=== PATIENT | female | born 1955 | race Caucasian/White ===

== ENCOUNTER → 2017-01-14 | Outpatient (CLI) | payer OTHER ==
[~2017-01-14] MED LIST: ASPI81TA28 PO; CITA40TA12 PO; GABA1CAP4 PO; GLC500 PO; INSDGI SQ; INSUINJ14 SQ; LSN5 PO; ONDA4TAB7 SL; PROP20TA67 PO
--- NOTE | 2017-01-14 10:37 | DIAGNOSTIC IMAGING REPORT ---
CT LUNG SCREENING, LOW DOSE WITH COMPUTER-AIDED DETECTION (CAD) CLINICAL HISTORY: LOW DOSE LUNG SCREENING COMPARISON STUDY: No previous studies for comparison. CT DOSE: 79.39 mGycm TECHNIQUE: Low-dose helical CT was acquired without intravenous contrast from lung apices to bases and reconstructed at 2.5 mm every 2 mm. CAD was utilized for this study. FINDINGS: Lungs are considered clear. 3 mm nodular density peripheral aspect right lower lobe transaxial image 83 3 mm nodular density peripheral left midlung image 34. Pleural-based density 5 mm superior segment left lower lobe. No acute infiltrate. No significant hilar or mediastinal adenopathy. Nodule 1 Category: 3 Nodule 1 Status: Baseline Nodule 1 Description: Solid Nodule 1 Lesion ID: 6 Nodule 1 Slice Number: 88 Nodule 1 Volume (mm3): 121 Nodule 1 Major [place] mm: 8.7 Nodule 1 Minor [place] mm: 5.7 Nodule 2 Category: 2 Nodule 2 Status: Baseline Nodule 2 Description: Solid Nodule 2 Lesion ID: 1 Nodule 2 Slice Number: 67 Nodule 2 Volume (mm3): 81 Nodule 2 Major [place] mm: 7.1 Nodule 2 Minor [place] mm: 4.8 Nodule 3 Category: 2 Nodule 3 Status: Baseline Nodule 3 Description: Solid Nodule 3 Lesion ID: 5 Nodule 3 Slice Number: 82 Nodule 3 Volume (mm3): 53 Nodule 3 Major [place] mm: 4.3 Nodule 3 Minor [place] mm: 2.6 Nodule 4 Category: 3 Nodule 4 Status: Baseline Nodule 4 Description: Solid Nodule 4 Lesion ID: 6 Nodule 4 Slice Number: 88 Nodule 4 Volume (mm3): 121 Nodule 4 Major [place] mm: 8.7 Nodule 4 Minor [place] mm: 5.7 IMPRESSION: Several low suspicion nodules bilaterally. CAD FINDINGS: Overall Lung RADS Category: 3 Lung RADS Management Recommendation: Lung-RADS 3: Continue screening in 6 months. Lung RADS Follow Up Date: 2017-07-14 Lung RADS Nodule ID: 6 Electronically signed by: Mele Valdez M.D. 01/14/2017 10:35 AM Dictated Date/Time: 01/14/2017 10:24 AM
== END | disposition home or self-care (01) ==
LOC: C.CTS 10:04
PROVIDERS: ATTEND Internal Medicine
DX: F17.200 Nicotine dependence, unspecified, uncomplicated (principal); R91.8 Other nonspecific abnormal finding of lung field

== ENCOUNTER → 2017-01-15 | Outpatient (CLI) | payer OTHER ==
[2017-01-15 12:23] LABS: BASO % 0.6 %; BASO ABS # 0.03 K/uL (0-0.2); COMPLETE YES; EOS % 9.9 %; HEMATOCRIT 39.7 % (37-47); IG% 0.4 %; LYMPH ABS # 1.16 K/uL (1.2-3.4); MEAN CELL VOLUME 87.4 fL (80-100); MEAN CORPUSCULAR HGB CONC 34.3 g/dl (32-36); MEAN PLATELET VOLUME 10.6 fL (7.4-10.4); MONO % 9.3 %; NEUT % 57.8 %; PLATELET COUNT 215 K/uL (130-400); RED BLOOD COUNT 4.54 M/uL (4.2-5.4); WHITE BLOOD COUNT 5.27 K/uL (4.8-10.8)
[2017-01-15 12:35] LABS: ALT/SGPT 22 U/L (12-78); BLOOD UREA NITROGEN 22 mg/dl (7-18); BUN/CREATININE RATIO 27.4 (10-20); CALCIUM 9.4 mg/dl (8.5-10.1); CARBON DIOXIDE 28 mmol/L (21-32); CHLORIDE 101 mmol/L (98-107); CHOLESTEROL 172 mg/dl (0-200); GLUCOSE 159 mg/dl (70-99); POTASSIUM 4.5 mmol/L (3.5-5.1); SODIUM 136 mmol/L (136-145); TRIGLYCERIDES 117 mg/dl (0-150); VERY LOW DENSITY LIPOPROT CALC 23 mg/dl
[2017-01-15 12:38] LABS: ALB/GLOB RATIO 1.3 (0.9-2); ALKALINE PHOSPHATASE 67 U/L (45-117); AST/SGOT 15 U/L (15-37); CHOLESTEROL/HDL RATIO 3.2; HDL CHOLESTEROL 54 mg/dl; LDL CHOLESTEROL CALCULATED 95 mg/dl
== END | disposition home or self-care (01) ==
LOC: C.LABBFT 08:43
PROVIDERS: ATTEND Internal Medicine
DX: E11.9 Type 2 diabetes mellitus without complications (principal); E78.5 Hyperlipidemia, unspecified

== ENCOUNTER → 2017-02-02 | Outpatient (CLI) | payer OTHER ==
--- NOTE | 2017-02-02 14:16 | DIAGNOSTIC IMAGING REPORT ---
MRI OF THE CERVICAL SPINE WITHOUT IV CONTRAST CLINICAL HISTORY: Neck pain. Left shoulder numbness. COMPARISON STUDY: No priors. TECHNIQUE: MRI of the cervical spine is performed utilizing various T1 and T2-weighted sequences in the axial and sagittal planes. IV contrast was not administered for this examination. FINDINGS: Cervical spine: Vertebral body height and alignment are maintained throughout the cervical spine. The atlantodental articulation appears maintained. Marrow signal intensity is heterogeneous. The spinous processes appear intact. No destructive bony lesion is seen. A hemangioma is noted in the body of T3. Advanced degenerative endplate edema is present at C7 to T1. Mild endplate edema is seen at C2-C3 and C3-C4. Anterior osteophytes are seen throughout. Intervertebral discs: Degenerative disc desiccation and loss of height is seen throughout the cervical spine. Loss of height is severe from C3-C4 through C6-C7. Spinal cord: The cervical spinal cord is normal in morphology and signal intensity. C2-C3: Unremarkable. C3-C4: A posterior disc osteophyte complex abuts the ventral cord. Uncovertebral and facet arthropathy causes moderate left and mild right neural foraminal stenosis. C4-C5: A posterior disc osteophyte complex eccentric to the left effaces the ventral cord. Uncovertebral and facet arthropathy causes severe left and moderate right neural foraminal stenosis. C5-C6: A posterior disc osteophyte complex effaces the ventral cord. Uncovertebral and facet arthropathy causes moderate bilateral neural foraminal stenosis. C6-C7: A posterior disc osteophyte complex effaces the ventral subarachnoid space. Uncovertebral and facet arthropathy cause moderate right and mild to moderate left neural foraminal stenosis. C7-T1: A posterior disc osteophyte complex abuts the ventral cord. Uncovertebral and facet arthropathy causes moderate to severe right greater than left neural foraminal stenosis. Soft tissues: The prevertebral and paraspinous soft tissues are normal as imaged. Brain parenchyma: Partially imaged brain parenchyma at the skull base is within normal limits. IMPRESSION: 1. Degenerative disc disease as above. There is severe endplate edema at C7-T1. 2. Moderate to advanced multilevel cervical spondylosis. See discussion for detailed level by level analysis. 3. The cervical spinal cord is normal in morphology and signal intensity. Dictated: 02/02/2017 2:05 PM Transcribed: 02/02/2017 2:15 PM [facility] Electronically signed by: Eugene Richardson M.D. 02/02/2017 2:27 PM Dictated Date/Time: 02/02/2017 2:05 PM
== END | disposition home or self-care (01) ==
LOC: C.MRI 13:12
PROVIDERS: ATTEND Psychiatry & Neurology Neurology
DX: M50.20 Other cervical disc displacement, unspecified cervical region (principal); M50.30 Other cervical disc degeneration, unspecified cervical region; M47.812 Spondylosis without myelopathy or radiculopathy, cervical region; R20.0 Anesthesia of skin

== ENCOUNTER → 2017-02-19 | Outpatient (CLI) | payer OTHER ==
[2017-02-19 12:32] LABS: ESTIMATED AVERAGE GLUCOSE 169 mg/dl; HA1C FLAG Normal (Normal)
== END | disposition home or self-care (01) ==
LOC: C.LABBFT 10:14
PROVIDERS: ATTEND Nurse Practitioner Family
DX: E11.65 Type 2 diabetes mellitus with hyperglycemia (principal)

== ENCOUNTER → 2017-07-08 | Outpatient (CLI) | payer OTHER ==
[2017-07-08 12:24] LABS: ALT/SGPT 19 U/L (12-78); BLOOD UREA NITROGEN 19 mg/dl (7-18); BUN/CREATININE RATIO 24.7 (10-20); CALCIUM 9.4 mg/dl (8.5-10.1); CARBON DIOXIDE 27 mmol/L (21-32); CHLORIDE 107 mmol/L (98-107); CHOLESTEROL 229 mg/dl (0-200); CREATININE 0.78 mg/dl (0.60-1.20); GLUCOSE 134 mg/dl (70-99); POTASSIUM 4.3 mmol/L (3.5-5.1); SODIUM 138 mmol/L (136-145)
[2017-07-08 12:35] LABS: ALKALINE PHOSPHATASE 68 U/L (45-117); AST/SGOT 12 U/L (15-37); CHOLESTEROL/HDL RATIO 4.3; HDL CHOLESTEROL 53 mg/dl; LDL CHOLESTEROL CALCULATED 148 mg/dl; TRIGLYCERIDES 141 mg/dl (0-150); VERY LOW DENSITY LIPOPROT CALC 28 mg/dl
[2017-07-08 13:16] LABS: ESTIMATED AVERAGE GLUCOSE 146 mg/dl; HA1C FLAG Normal (Normal)
== END | disposition home or self-care (01) ==
LOC: C.LABBFT 07:52
PROVIDERS: ATTEND Internal Medicine
DX: E11.65 Type 2 diabetes mellitus with hyperglycemia (principal); E78.5 Hyperlipidemia, unspecified

== ENCOUNTER → 2017-07-24 | Outpatient (CLI) | payer OTHER ==
--- NOTE | 2017-07-24 10:47 | DIAGNOSTIC IMAGING REPORT ---
SOFT TISS HEAD/NECK-THYROID CLINICAL HISTORY: 61 years-old Female presenting with abnormal thyroid exam. TECHNIQUE: Real-time grayscale and color and spectral Doppler ultrasound imaging of the thyroid and base of the neck was performed. COMPARISON: None. FINDINGS: Right lobe: Normal echogenicity and echotexture. The right lobe of the thyroid measures 5.4 x 1.6 x 2.5 cm. No nodules. No parenchymal hyperemia. Left lobe: Normal echogenicity and echotexture. The left lobe of the thyroid measures 5.6 x 1.7 x 2.2 cm. 2 nodules index below: 1) posterior peripheral hypoechoic nodule in the upper pole measuring 0.6 x 0.4 x 0.5 cm. (Intermediate suspicion pattern) 2) posterior peripheral hypoechoic nodule in the interpolar region measuring 0.7 0.5 x 0.6 cm. Tiny foci of hyperechogenicity may represent microcalcifications. (High suspicion pattern) No parenchymal hyperemia. Isthmus: The isthmus measures 3-5 mm in thickness. No nodules. IMPRESSION: 2 hypoechoic nodules noted along the posterior peripheral aspect of the left lobe of the thyroid. If these were to represent thyroid nodules, neither of them by size criteria warrant fine-needle aspiration at this time per [place] [employer] guidelines. However, differential considerations for these nodules include parathyroid glands. Correlate with serum calcium and possible parathyroid hormone levels. Electronically signed by: Jayjay Reynolds M.D. 07/24/2017 10:46 AM Dictated Date/Time: 07/24/2017 10:42 AM
--- NOTE | 2017-07-24 10:51 | DIAGNOSTIC IMAGING REPORT ---
CT OF THE CHEST WITHOUT IV CONTRAST CLINICAL HISTORY: Multiple pulmonary nodules. Six-month follow-up CT. COMPARISON STUDY: Screening lung CT January 14, 2017. CT DOSE: 626.34 mGycm TECHNIQUE: Axial images of the chest were obtained without IV contrast. Images were reviewed in the axial, sagittal, and coronal planes. IV contrast was not administered for this examination. A dose lowering technique was utilized adhering to the principles of ALARA. FINDINGS: No enlarged axillary, mediastinal or hilar lymph nodes are present. The size of the heart is normal. There is no pericardial effusion. Central airways are patent. Numerous small pleural nodules are either stable or decreased in size since exam of January 14, 2017 and include a 3 mm left lower lobe nodule shown image 34 of 66, a 5 mm left lower lobe nodule shown image 3466, a 3 mm lingular nodule shown image 38 and a 5 mm left lower lobe nodule shown image 32. Numerous additional smaller nodules are unchanged. A linear groundglass opacity within left upper lobe reflects scarring. There is no consolidation to suggest pneumonia. Central airways are patent. Bony thorax is unremarkable. There is slight prominence of the left renal pelvis which could reflect an extrarenal pelvis. IMPRESSION: No significant change in multiple small pulmonary nodules since exam of January 14, 2017. These nodules are likely benign. Lung-RADS 2. Benign appearance or behavior. Continue with annual screening low dose CT in 12 months on July 24, 2018. Nodule 1 Category: 2 Nodule 1 Status: Shrinking Nodule 1 Description: Solid Nodule 1 Lesion ID: 6 Nodule 1 Slice Number: 170 Nodule 1 Volume (mm3): 72 Nodule 1 Major [place] mm: 6.6 Nodule 1 Minor [place] mm: 4.6 Nodule 2 Category: 2 Nodule 2 Status: Stable Nodule 2 Description: Solid Nodule 2 Lesion ID: 7 Nodule 2 Slice Number: 161 Nodule 2 Volume (mm3): 50 Nodule 2 Major [place] mm: 5.6 Nodule 2 Minor [place] mm: 2.4 Nodule 3 Category: 2 Nodule 3 Status: Shrinking Nodule 3 Description: Solid Nodule 3 Lesion ID: 5 Nodule 3 Slice Number: 163 Nodule 3 Volume (mm3): 21 Nodule 3 Major [place] mm: 3.8 Nodule 3 Minor [place] mm: 3.6 Nodule 4 Category: 2 Nodule 4 Status: Shrinking Nodule 4 Description: Solid Nodule 4 Lesion ID: 6 Nodule 4 Slice Number: 170 Nodule 4 Volume (mm3): 72 Nodule 4 Major [place] mm: 6.6 Nodule 4 Minor [place] mm: 4.6 Electronically signed by: Sid Samayoa M.D. 07/24/2017 10:50 AM Dictated Date/Time: 07/24/2017 10:29 AM
== END | disposition home or self-care (01) ==
LOC: C.CTS 09:55
PROVIDERS: ATTEND Internal Medicine
DX: R94.6 Abnormal results of thyroid function studies (principal)

== ENCOUNTER → 2017-08-06 | Outpatient (CLI) | payer OTHER | END | disposition home or self-care (01) | LOC: C.LABBFT 13:43 | PROVIDERS: ATTEND Internal Medicine | DX: R94.6 Abnormal results of thyroid function studies (principal) ==

== ENCOUNTER → 2017-09-07 | Outpatient (CLI) | payer OTHER ==
--- NOTE | 2017-09-08 07:36 | MAMMOGRAPHY REPORT ---
BILATERAL DIGITAL SCREENING MAMMOGRAM TOMOSYNTHESIS WITH CAD: 09/07/2017 CLINICAL HISTORY: Routine screening. Patient has no complaints. TECHNIQUE: Breast tomosynthesis in addition to standard 2D mammography was performed. Current study was also evaluated with a Computer Aided Detection (CAD) system. COMPARISON: Comparison is made to exams dated: 09/05/2016 mammogram, 09/03/2015 mammogram, 08/31/2014 mammogram, 06/02/2013 mammogram, 01/22/2012 mammogram, and 05/29/2010 mammogram - [facility] enter. BREAST COMPOSITION: The tissue of both breasts is almost entirely fatty. FINDINGS: There is stable nodularity in the lateral aspect of each breast. A few benign round and r im calcifications. No suspicious mass, architectural distortion or cluster of microcalcifications is seen. IMPRESSION: ACR BI-RADS CATEGORY 2: BENIGN There is no mammographic evidence of malignancy. A 1 year screening mammogram is recommended. The pa tient will receive written notification of the results. Approximately 10% of breast cancers are not detected with mammography. A negative mammographic report should not delay biopsy if a clinically suggestive mass is present. Ora Singleton M.D. ay/:09/07/2017 16:31:36 [employer]: Gayatri Hussein, [facility] letter sent: Normal 1/2 BI-RADS Code: ACR BI-RADS Category 2: Benign
== END | disposition home or self-care (01) ==
LOC: C.MAMM 11:33
PROVIDERS: ATTEND Internal Medicine
DX: Z12.31 Encounter for screening mammogram for malignant neoplasm of breast (principal)

== ENCOUNTER → 2018-01-28 | Outpatient (CLI) | payer OTHER ==
[~2018-01-28] MED LIST changes: +GABA-1219 PO; -GABA1CAP4 PO
--- NOTE | 2018-01-28 10:42 | DIAGNOSTIC IMAGING REPORT ---
SOFT TISS HEAD/NECK-THYROID HISTORY: Thyroid nodule E04.1 Thyroid nodule6 month follow-[id number] COMPARISON: 07/24/2017 FINDINGS: Right lobe: Maximum dimension 4.6 cm. Several small hypoechoic nodular densities with the largest measuring 4 mm. Left lobe: Maximum dimension 5.3 cm. 8 mm upper pole nodule slightly increased in volume. Complex 9 mm lower pole nodule is minimally increased. Isthmus: 6 mm hypoechoic nodule right aspect. 4 mm hypoechoic nodule left lateral aspect. IMPRESSION: Multicystic multinodular thyroid slightly increased in nodularity compared to the prior exam. All nodules remain smaller than 1 cm with a repeat study recommended in 6-9 months. The above report was generated using voice recognition software. It may contain grammatical, syntax or spelling errors. Electronically signed by: Mele Valdez M.D. 01/28/2018 10:41 AM Dictated Date/Time: 01/28/2018 10:38 AM
== END | disposition home or self-care (01) ==
LOC: C.ULTR 09:53
PROVIDERS: ATTEND Internal Medicine
DX: E04.2 Nontoxic multinodular goiter (principal)

== ENCOUNTER → 2018-02-25 | Outpatient (CLI) | payer OTHER ==
--- NOTE | 2018-02-25 12:03 | DIAGNOSTIC IMAGING REPORT ---
CT LUNG SCREENING, LOW DOSE WITH COMPUTER-AIDED DETECTION (CAD) CLINICAL HISTORY: History of tobacco use. COMPARISON STUDY: Lung cancer screening 01/14/2017. CT DOSE: 75.68 mGy.cm TECHNIQUE: Low-dose helical CT was acquired without intravenous contrast from lung apices to bases and reconstructed at 2.5 mm every 2 mm. CAD was utilized for this study. A dose lowering technique was utilized adhering to the principles of ALARA. FINDINGS: Mild emphysema. No pleural effusions. No pneumothorax. Small linear scarlike density within the liver from the left midlung zone. There again noted a few scattered subcentimeter bilateral pulmonary nodules. No new pulmonary nodules identified. Dominant nodules are detailed below. No suspicious lytic or blastic osseous lesions. No mediastinal or hilar lymphadenopathy. Nodule 1 Category: 2 Nodule 1 Status: Growing Nodule 1 Description: Solid Nodule 1 Lesion ID: 6 Nodule 1 Slice Number: 67 Nodule 1 Volume (mm3): 103 Nodule 1 Major [place] mm: 7.6 Nodule 1 Minor [place] mm: 4.3 Nodule 2 Category: 2 Nodule 2 Status: Growing Nodule 2 Description: Solid Nodule 2 Lesion ID: 5 Nodule 2 Slice Number: 59 Nodule 2 Volume (mm3): 54 Nodule 2 Major [place] mm: 4.7 Nodule 2 Minor [place] mm: 3.7 IMPRESSION: Multiple subcentimeter pulmonary nodules are again noted with details described above. No new pulmonary nodules. CAD FINDINGS: Overall Lung RADS Category: 2 Lung RADS Management Recommendation: Continue annual lung cancer screening. Lung RADS Follow Up Date: 2019-02-25 Lung RADS Nodule ID: 6 Electronically signed by: Juaquin Burgess M.D. 02/25/2018 12:02 PM Dictated Date/Time: 02/25/2018 11:31 AM
== END | disposition home or self-care (01) ==
LOC: C.CTS 10:45
PROVIDERS: ATTEND Internal Medicine
DX: Z87.891 Personal history of nicotine dependence (principal); R91.8 Other nonspecific abnormal finding of lung field

== ENCOUNTER → 2018-03-09 | Outpatient (CLI) | payer OTHER | END | disposition home or self-care (01) | LOC: C.PAPS 17:19 | PROVIDERS: ATTEND Nurse Practitioner | DX: Z12.4 Encounter for screening for malignant neoplasm of cervix (principal); E11.9 Type 2 diabetes mellitus without complications ==

== ENCOUNTER → 2018-06-28 | Outpatient (CLI) | payer OTHER ==
[~2018-06-28] MED LIST changes: +LISI-730 PO; -LSN5 PO
[2018-06-28 12:45] LABS: HEMOGLOBIN A1C 7.6 % (4.5-5.6)
[2018-06-28 13:02] LABS: ALBUMIN 3.7 gm/dl (3.4-5.0); ALKALINE PHOSPHATASE 69 U/L (45-117); ALT/SGPT 17 U/L (12-78); AST/SGOT 10 U/L (15-37); BLOOD UREA NITROGEN 20 mg/dl (7-18); CALCIUM 8.8 mg/dl (8.5-10.1); CARBON DIOXIDE 26 mmol/L (21-32); CHOLESTEROL 210 mg/dl (0-200); GLUCOSE 117 mg/dl (70-99); LDL CHOLESTEROL CALCULATED 132 mg/dl; POTASSIUM 3.9 mmol/L (3.5-5.1); SODIUM 139 mmol/L (136-145); TOTAL PROTEIN 6.8 gm/dl (6.4-8.2)
== END | disposition home or self-care (01) ==
LOC: C.LABBFT 09:12
PROVIDERS: ATTEND Nurse Practitioner
DX: E11.65 Type 2 diabetes mellitus with hyperglycemia (principal)

== ENCOUNTER 2020-01-22 11:18 | Observation (INO) ==
[2020-01-22] MEDS ORDERED: ALBUT/IPRATROP 3MG/0.5MG NEB 3 ML VIAL INH STA (11:57)
[2020-01-22 12:07] LABS: Basophils # (auto) 0.02 K/uL (0-0.2); Basophils % (auto) 0.4 %; Eosinophils # (auto) 0.35 K/uL (0-0.5); Eosinophils % (auto) 7.8 %; Hematocrit (blood only) 41.4 % (37-47); Hemoglobin 13.8 g/dL (12.0-16.0); Immature Granulocytes # (auto) 0.01 K/uL (0.00-0.02); Immature Granulocytes % (auto) 0.2 %; Lymphocytes # (auto) 0.73 K/uL (1.2-3.4); Lymphocytes % (auto) 16.3 %; Mean Corpuscular Hgb Conc 33.3 g/dL (32-36); Mean Platelet Volume 10.7 fL (7.4-10.4); Monocytes % (auto) 11.2 %; Neutrophils # (auto) 2.87 K/uL (1.4-6.5); Neutrophils % (auto) 64.1 %; Platelet Count 204 K/uL (130-400); RDW Coefficient of Variation 12.2 % (11.5-14.5); RDW Standard Deviation 39.9 fL (36.4-46.3); White Blood Count 4.48 K/uL (4.8-10.8)
[2020-01-22 12:14] LABS: Alanine Aminotransferase 19 U/L (12-78); Albumin Level 3.8 gm/dl (3.4-5.0); Aspartate Aminotransferase 14 U/L (15-37); BUN Creatinine Ratio 10.9 (10-20); Blood Urea Nitrogen 9 mg/dl (7-18); Calcium 9.8 mg/dl (8.5-10.1); Carbon Dioxide 28 mmol/L (21-32); Chloride 103 mmol/L (98-107); Creatinine Clr Calc Pharmacy 94.9 ml/min; Est GFR (African American) 91.6; Glucose 237 mg/dl (70-99); Potassium 3.9 mmol/L (3.5-5.1); Sodium 137 mmol/L (136-145)
[2020-01-22 12:16] LABS: Partial Thromboplastin Time 27.3 Seconds (21.0-31.0); Prothrombin Time 10.5 Seconds (9.0-12.0)
[2020-01-22 12:19] LABS: Alkaline Phosphatase 89 U/L (45-117); Bilirubin,Total 0.4 mg/dl (0.2-1); Total Protein 7.8 gm/dl (6.4-8.2); Troponin I < 0.015 ng/ml (0-0.045)
--- NOTE | 2020-01-22 12:29 | Emergency Department Note ---
Entered by Swati Van acting as a scribe for History of Present Illness General Chief complaint: Shortness of Breath/Dyspnea Stated complaint: sob/flu symptoms Time Seen by Provider: 01/22/20 11:48 Source: patient History of Present Illness Onset (ago): day(s) 2 Location: chest Pain Consistency: + other (persistent ) Quality: + other (shortness of breath) Associated symptoms: + chest pain (tightness), + cough (slightly productive ), + fever/chills, + nausea/vomiting (positive nausea; negative vomiting ) and + other (positive runny nose) The patient is a 64 year old female who presents to the Emergency Room with complaints of persistent shortness of breath that began 2 days prior to arrival. The patient reports that she has tightness in her chest with breathing. The patient states that she has had a slightly productive cough during this time. The patient reports a low grade fever yesterday. She states that she has had a runny nose during this time. The patient states that she has been feeling nauseous, but denies vomiting. The patient states that 2 weeks ago she had sinus symptoms and was seen by a nurse practitioner for sinus symptoms and dizziness and was given medication for this dizziness. The patient states that she got a flu shot this year. She states that she is a smoker. Home Medications Home Medications Medication Instructions Recorded Confirmed Type citalopram 40 mg tablet 40 mg PO QAM #30 tab 07/04/19 01/22/20 History metformin 1,000 mg tablet 1,000 mg PO BID #180 tab 07/04/19 01/22/20 History [id number]-[id number] 1 tab PO HS 07/04/19 01/22/20 History triamcinolone acetonide 0.5 % 1 appln TOPICAL DAILY PRN #3 gm 07/04/19 01/22/20 History topical cream insulin aspart U-100 100 unit/mL 0 units SQ TIDM ml 08/08/19 01/22/20 History (3 mL) subcutaneous pen propranolol 20 mg tablet 20 mg PO BID 08/10/19 01/22/20 History BD Ultra-Fine Amanda Pen Needle 32 #400 ea NS 12/08/19 01/05/20 Rx gauge x 5/32" OneTouch Ultra Blue Test Strip #400 ea NS 12/08/19 01/05/20 Rx fluticasone propionate 50 2 sprays INTRANASAL HS #3 gm 12/08/19 01/22/20 History mcg/actuation nasal spray,suspension nystatin 100,000 unit/gram topical 1 appln TOPICAL TID PRN #3 gm 12/08/19 01/22/20 History powder blood-glucose meter #1 ea 01/05/20 01/05/20 History gabapentin 300 mg capsule 300 mg PO HS #90 cap 01/12/20 01/22/20 Rx Toujeo Max U-300 SoloStar 22 units SQ HS 01/22/20 01/22/20 History aspirin 81 mg PO QAM 01/22/20 01/22/20 History ibuprofen 200 mg PO Q6H PRN 01/22/20 01/22/20 History pseudoephedrine HCl [Sudafed] 30 mg PO Q6H PRN 01/22/20 01/22/20 History doxycycline hyclate 100 mg PO BID #8 tab 01/23/20 Rx ipratropium-albuterol [Combivent 2 puffs INH Q6H PRN #4 gm 01/23/20 Rx Respimat] nicotine 14 mg TRANSDERMAL QAM #14 ea 01/23/20 Rx prednisone 40 mg PO DAILY #8 tab 01/23/20 Rx Allergies Allergy/AdvReac Type Severity Reaction Status Date / Time atorvastatin Allergy MYALGIA Verified 01/22/20 12:01 rosuvastatin [From Crestor] Allergy Verified 01/22/20 12:01 simvastatin Allergy Verified 01/22/20 12:01 primidone AdvReac DEPRESSION; Verified 01/22/20 12:01 SUICIDAL THOUGHTS PRIMADONE Allergy Unknown DEPRESSION, Uncoded 01/22/20 12:01 SUICIDAL IDEATION Past Med/Surg History Medical History Bipolar disorder, unspecified (Acute) Depression (Acute) Diabetes mellitus type 2, uncontrolled, without complications (Acute) Herniated cervical disc (Acute) Hyperlipidemia (Acute) Hypertension (Acute) Insomnia (Acute) Lichen sclerosus et atrophicus (Acute) Multiple pulmonary nodules (Acute) Numbness (Acute) Obesity (Acute) Shoulder pain (Acute) Smokes 1/2 pack per day (Acute) Thyroid nodule (Acute) Tremor (Acute) Tricuspid regurgitation (Acute) Vasovagal syncope (Acute) Surgical History H/O oophorectomy (Acute) Family History Mother Breast cancer Denies family history of Ovarian cancer Prostate cancer Myocardial infarction Colorectal cancer Social History Preferred Language: Sudanese Communication Ability: Effective 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 and A total of 10 systems reviewed and were otherwise negative Physical Exam Vital Signs Vital Signs - 24 hr 01/22/20 11:35 01/22/20 11:37 01/22/20 12:00 Temperature 36.9 C Temperature Source Oral Pulse Rate 91 H 88 96 H Pulse Rate [Right Finger] Pulse Rate from SpO2 Sensor 95 H 95 H Respiratory Rate 22 26 H 17 Respiratory Effort / Characteristics Blood Pressure 159/86 H 157/113 H 163/102 H Blood Pressure Mean 102 127 121 Pulse Oximetry 98 90 97 Oxygen Delivery Method Nasal Cannula Nasal Cannula Nasal Cannula Oxygen Flow Rate 2 0 2 Sepsis Recent Fever Within 48 Hours No Sepsis New/Unexplained Change in Mental Status No Sepsis Action Taken by Nursing No Action Required Oxygen Flow Rate - Titration 2 Pulse Oximetry Post Tiitration 97 01/22/20 12:09 01/22/20 12:11 01/22/20 12:30 Temperature Temperature Source Pulse Rate 85 Pulse Rate [Right Finger] 71 Pulse Rate from SpO2 Sensor 83 Respiratory Rate 16 16 Respiratory Effort / Characteristics Non-Labored Spontaneous Blood Pressure 152/97 H Blood Pressure Mean 114 Pulse Oximetry 98 97 98 Oxygen Delivery Method Nasal Cannula Nasal Cannula Nasal Cannula Oxygen Flow Rate 2 2 2 Sepsis Recent Fever Within 48 Hours Sepsis New/Unexplained Change in Mental Status Sepsis Action Taken by Nursing Oxygen Flow Rate - Titration Pulse Oximetry Post Tiitration 01/22/20 13:00 01/22/20 13:30 01/22/20 14:00 Temperature Temperature Source Pulse Rate 86 78 68 Pulse Rate [Right Finger] Pulse Rate from SpO2 Sensor 87 79 68 Respiratory Rate 23 13 19 Respiratory Effort / Characteristics Blood Pressure 165/85 H 164/87 H 143/87 H Blood Pressure Mean 95 103 105 Pulse Oximetry 94 92 95 Oxygen Delivery Method Nasal Cannula Nasal Cannula Oxygen Flow Rate 2 2 Sepsis Recent Fever Within 48 Hours Sepsis New/Unexplained Change in Mental Status Sepsis Action Taken by Nursing Oxygen Flow Rate - Titration Pulse Oximetry Post Tiitration 01/22/20 14:17 01/22/20 14:30 01/22/20 15:30 Temperature Temperature Source Pulse Rate 87 88 Pulse Rate [Right Finger] 71 Pulse Rate from SpO2 Sensor 89 Respiratory Rate 16 17 18 Respiratory Effort / Characteristics Non-Labored Spontaneous Blood Pressure 147/93 H Blood Pressure Mean 130 Pulse Oximetry 98 94 Oxygen Delivery Method Nasal Cannula Oxygen Flow Rate 2 Sepsis Recent Fever Within 48 Hours Sepsis New/Unexplained Change in Mental Status Sepsis Action Taken by Nursing Oxygen Flow Rate - Titration Pulse Oximetry Post Tiitration GENERAL: Patient is awake alert in no acute distress patient is resting comfortably and showing no signs of anxiety EYES: The conjunctivae are clear. The pupils are round and reactive. EARS, NOSE, MOUTH AND THROAT: The nose is without any evidence of any deformity. Mucous membranes are moist. Tongue is midline. NECK: The neck is nontender and supple. RESPIRATORY: Shallow respirations were noted. Expiratory wheezing was noted in all lung hough. There is no significant conversational dyspnea appreciated. CARDIOVASCULAR: Regular rate and rhythm noted there no murmurs rubs or gallops normal S1 normal S2. GASTROINTESTINAL: The abdomen is soft. Abdomen is nontender. MUSCULOSKELETAL/EXTREMITIES: There is no evidence of gross deformity full range of motion is noted in the hips and shoulders. SKIN: There is no obvious evidence of any rash. There is no calf tenderness elicited. NEUROLOGIC: Patient is awake alert and oriented x3 strength is symmetric patellar reflexes are 2+ bilaterally Course Course 1156: Past medical records reviewed. The patient was evaluated in room A12B. A complete history and physical exam was performed. 1358: Upon reevaluation, the patient appears to be hypoxic. 1406: I discussed the case with Dr. Rosario-[facility] Hospitalist who accepts the patient for further evaluation. She recommended a CT of the patient's chest. Administered Medications Discontinued Medications Acetaminophen (Tylenol) 650 mg PO Q4H PRN PRN Reason: Pain or Fever Stop: 02/21/20 16:46 Last Admin: 01/23/20 08:22 Dose: 650 mg Documented by: [id number] Albuterol (Duoneb) 3 ml INH NOW STA Stop: 01/22/20 11:58 Last Admin: 01/22/20 12:11 Dose: 3 ml Documented by: [id number] Albuterol (Duoneb) 3 ml NEB NOW STA Stop: 01/22/20 13:55 Last Admin: 01/22/20 14:16 Dose: 3 ml Documented by: [id number] Albuterol (Duoneb) 3 ml NEB QIDR [facility] Stop: 02/21/20 18:59 Last Admin: 01/23/20 11:24 Dose: 3 ml Documented by: [id number] Admin: 01/23/20 07:14 Dose: 3 ml Documented by: [id number] Admin: 01/22/20 18:13 Dose: 3 ml Documented by: [id number] Aspirin (Ecotrin Ectab) 81 mg PO [facility] Stop: 02/22/20 08:59 Last Admin: 01/23/20 08:08 Dose: 81 mg Documented by: [id number] Citalopram Hydrobromide (Celexa) 40 mg PO [facility] Stop: 02/22/20 08:59 Last Admin: 01/23/20 08:08 Dose: 40 mg Documented by: [id number] Enoxaparin Sodium (Lovenox) [address] [facility] Stop: 02/21/20 20:59 Last Admin: 01/22/20 21:56 Dose: Not Given Documented by: [id number] Fluticasone Propionate (Flonase) [address] [facility] Stop: 02/21/20 20:59 Last Admin: 01/22/20 21:08 Dose: 2 sprays Documented by: [id number] Fluticasone/Vilanterol (Breo Ellipta 100/25 Mcg Inh) [address] [facility] Stop: 02/21/20 20:59 Last Admin: 01/22/20 21:08 Dose: 1 puffs Documented by: [id number] Gabapentin (Neurontin) [address] [facility] Stop: 02/21/20 20:59 Last Admin: 01/22/20 21:08 Dose: 300 mg Documented by: [id number] Doxycycline Hyclate 100 mg/ (Dextrose) 110 mls @ 50 mls/hr IV BID [facility]; Protocol Stop: 01/29/20 20:59 Last Infusion: 01/23/20 11:10 Dose: 0 mls/hr Documented by: [id number] Admin: 01/23/20 08:17 Dose: 50 mls/hr Documented by: [id number] Infusion: 01/23/20 00:30 Dose: 0 mls/hr Documented by: [id number] Admin: 01/22/20 21:28 Dose: 50 mls/hr Documented by: [id number] Ceftriaxone Sodium 2,000 mg/ (Dextrose) 70 mls @ 100 mls/hr IV Q24H [facility]; Protocol Stop: 01/29/20 17:59 Last Infusion: 01/22/20 18:49 Dose: 0 mls/hr Documented by: [id number] Admin: 01/22/20 17:38 Dose: 100 mls/hr Documented by: [id number] Methylprednisolone 40 mg/ (Syringe) 0.64 mls @ 1.5 mls/min IV BID [facility] Stop: 02/21/20 20:59 Last Admin: 01/23/20 08:07 Dose: 1.5 mls/min Documented by: [id number] Admin: 01/22/20 21:08 Dose: 1.5 mls/min Documented by: [id number] Insulin Aspart (Novolog Flexpen) 0 units SC ACHS [facility] Stop: 02/21/20 17:29 Last Admin: 01/23/20 12:21 Dose: 18 units Documented by: [id number] Cosigned by: [id number] Admin: 01/23/20 08:12 Dose: 29 units Documented by: [id number] Cosigned by: [id number] Admin: 01/22/20 21:07 Dose: 14 units Documented by: [id number] Cosigned by: [id number] Admin: 01/22/20 17:33 Dose: 14 units Documented by: [id number] Cosigned by: [id number] Insulin Aspart (Novolog Flexpen) 0 units SC 0000,0400 [facility] Stop: 01/23/20 04:01 Last Admin: 01/23/20 03:53 Dose: 7 units Documented by: [id number] Cosigned by: [id number] Admin: 01/22/20 23:45 Dose: 10 units Documented by: [id number] Cosigned by: [id number] Insulin Glargine (Lantus Solostar Pen) 0 units SC ONE; Protocol Stop: 01/22/20 21:01 Last Admin: 01/22/20 21:06 Dose: 30 units Documented by: [id number] Cosigned by: [id number] Insulin Human NPH (Novolin N Nph) 20 units SC DAILY@0800 [facility] Stop: 02/22/20 08:29 Last Admin: 01/23/20 09:18 Dose: 20 units Documented by: [id number] Cosigned by: [id number] Insulin Human Regular (Novolin R U-100 Per Unit) 4 units IV NOW STA Stop: 01/22/20 14:09 Last Admin: 01/22/20 15:02 Dose: Not Given Documented by: [id number] Ioversol (Optiray 320 125ml) 120 ml IV ONCE PRN PRN Reason: Interaction Checking Stop: 01/26/20 15:07 Last Admin: 01/22/20 15:08 Dose: 120 ml Documented by: [id number] Loratadine (Claritin) 10 mg PO HS [facility] Stop: 02/21/20 20:59 Last Admin: 01/22/20 21:08 Dose: 10 mg Documented by: [id number] Methylprednisolone (Solumedrol) 125 mg IV NOW STA Stop: 01/22/20 13:55 Last Admin: 01/22/20 14:02 Dose: 125 mg Documented by: [id number] Miscellaneous (Remove Nicoderm Patch) 1 ea N/A DAILY@0859 [facility] Stop: 02/22/20 08:58 Last Admin: 01/23/20 08:13 Dose: 1 ea Documented by: [id number] Multivitamins/Minerals (Multivitamin W/ Minerals Tab) 1 tab PO HS [facility] Stop: 02/21/20 20:59 Last Admin: 01/22/20 21:08 Dose: 1 tab Documented by: [id number] Nicotine (Nicoderm Cq) 14 mg TD QAM [facility] Stop: 02/21/20 16:46 Last Admin: 01/23/20 08:13 Dose: 14 mg Documented by: [id number] Admin: 01/22/20 17:37 Dose: 14 mg Documented by: [id number] Propranolol HCl (Inderal) 20 mg PO BID [facility] Stop: 02/21/20 20:59 Last Admin: 01/23/20 08:08 Dose: 20 mg Documented by: [id number] Admin: 01/22/20 21:08 Dose: 20 mg Documented by: [id number] Trazodone HCl (Desyrel) 100 mg PO HS PRN PRN Reason: sleep Stop: 02/22/20 20:59 Last Admin: 01/23/20 00:37 Dose: 100 mg Documented by: [id number] Medical Decision Making Differential Diagnosis Differential diagnoses includes but is not limited to pneumonia, bronchitis, COPD/Asthma exacerbation, pneumothorax, pulmonary embolism, congestive heart failure, acute coronary syndrome Medical Records Attestation: I reviewed the patient's medical records. Home Medications Current Medication List: was personally reviewed by me Laboratory Data Attestation: I reviewed the patient's lab results. Result diagrams: 01/23/20 05:22 01/23/20 05:22 Lab Results 01/22/20 01/22/20 01/22/20 Range/Units 10:55 10:55 10:55 WBC 4.48 L (4.8-10.8) K/uL RBC 4.60 (4.2-5.4) M/uL Hgb 13.8 (12.0-16.0) g/dL Hct 41.4 (37-47) % MCV 90.0 (80-100) fL MCH 30.0 (25-34) pg MCHC 33.3 (32-36) g/dL RDW Std Deviation 39.9 (36.4-46.3) fL RDW Coeff of [place] 12.2 (11.5-14.5) % Plt Count 204 (130-400) K/uL MPV 10.7 H (7.4-10.4) fL Immature Gran % (Auto) 0.2 % Neut % (Auto) 64.1 % Lymph % (Auto) 16.3 % [place] % (Auto) 11.2 % Eos % (Auto) 7.8 % Baso % (Auto) 0.4 % Immature Gran # (Auto) 0.01 (0.00-0.02) K/uL Neut # (Auto) 2.87 (1.4-6.5) K/uL Lymph # (Auto) 0.73 L (1.2-3.4) K/uL [place] # (Auto) 0.50 (0.11-0.59) K/uL Eos # (Auto) 0.35 (0-0.5) K/uL Baso # (Auto) 0.02 (0-0.2) K/uL PT 10.5 (9.0-12.0) Seconds INR 1.0 (0.9-1.1) APTT 27.3 (21.0-31.0) Seconds PTT Ratio 1.0 Sodium 137 (136-145) mmol/L Potassium 3.9 (3.5-5.1) mmol/L Chloride 103 (98-107) mmol/L Carbon Dioxide 28 (21-32) mmol/L Anion Gap 5.0 (3-11) BUN 9 (7-18) mg/dl Creatinine 0.80 (0.6-1.2) mg/dl Est Cr Clr Drug Dosing 94.9 ml/min Est GFR ( Amer) 91.6 Est GFR (Non-Af Amer) 79.0 BUN/Creatinine Ratio 10.9 (10-20) Glucose 237 H (70-99) mg/dl POC Glucose (70-99) mg/dl Estimat Average Glucose mg/dl Hemoglobin A1c (4.5-5.6) % Calcium 9.8 (8.5-10.1) mg/dl Magnesium 2.0 (1.8-2.4) mg/dl Total Bilirubin 0.4 (0.2-1) mg/dl AST 14 L (15-37) U/L ALT 19 (12-78) U/L Alkaline Phosphatase 89 (45-117) U/L Troponin I < 0.015 (0-0.045) ng/ml NT-Pro-B Natriuret Pep 69 (0-900) pg/ml Total Protein 7.8 (6.4-8.2) gm/dl Albumin 3.8 (3.4-5.0) gm/dl Globulin 4.0 (2.5-4.0) gm/dl Albumin/Globulin Ratio 1.0 (0.9-2) TSH 1.040 (0.300-4.500) uIu/ml Hepatitis C Ab Screen (Neg) Influenza Type A (PCR) (Neg) Influenza Type B (PCR) (Neg) 01/22/20 01/22/20 01/22/20 Range/Units 10:55 10:55 12:05 WBC (4.8-10.8) K/uL RBC (4.2-5.4) M/uL Hgb (12.0-16.0) g/dL Hct (37-47) % MCV (80-100) fL MCH (25-34) pg MCHC (32-36) g/dL RDW Std Deviation (36.4-46.3) fL RDW Coeff of [place] (11.5-14.5) % Plt Count (130-400) K/uL MPV (7.4-10.4) fL Immature Gran % (Auto) % Neut % (Auto) % Lymph % (Auto) % [place] % (Auto) % Eos % (Auto) % Baso % (Auto) % Immature Gran # (Auto) (0.00-0.02) K/uL Neut # (Auto) (1.4-6.5) K/uL Lymph # (Auto) (1.2-3.4) K/uL [place] # (Auto) (0.11-0.59) K/uL Eos # (Auto) (0-0.5) K/uL Baso # (Auto) (0-0.2) K/uL PT (9.0-12.0) Seconds INR (0.9-1.1) APTT (21.0-31.0) Seconds PTT Ratio Sodium (136-145) mmol/L Potassium (3.5-5.1) mmol/L Chloride (98-107) mmol/L Carbon Dioxide (21-32) mmol/L Anion Gap (3-11) BUN (7-18) mg/dl Creatinine (0.6-1.2) mg/dl Est Cr Clr Drug Dosing ml/min Est GFR ( Amer) Est GFR (Non-Af Amer) BUN/Creatinine Ratio (10-20) Glucose (70-99) mg/dl POC Glucose (70-99) mg/dl Estimat Average Glucose 200 mg/dl Hemoglobin A1c 8.6 H (4.5-5.6) % Calcium (8.5-10.1) mg/dl Magnesium (1.8-2.4) mg/dl Total Bilirubin (0.2-1) mg/dl AST (15-37) U/L ALT (12-78) U/L Alkaline Phosphatase (45-117) U/L Troponin I (0-0.045) ng/ml NT-Pro-B Natriuret Pep (0-900) pg/ml Total Protein (6.4-8.2) gm/dl Albumin (3.4-5.0) gm/dl Globulin (2.5-4.0) gm/dl Albumin/Globulin Ratio (0.9-2) TSH (0.300-4.500) uIu/ml Hepatitis C Ab Screen Neg (Neg) Influenza Type A (PCR) Neg for Influ A (Neg) Influenza Type B (PCR) Neg for Influ B (Neg) 01/22/20 Range/Units 14:52 WBC (4.8-10.8) K/uL RBC (4.2-5.4) M/uL Hgb (12.0-16.0) g/dL Hct (37-47) % MCV (80-100) fL MCH (25-34) pg MCHC (32-36) g/dL RDW Std Deviation (36.4-46.3) fL RDW Coeff of [place] (11.5-14.5) % Plt Count (130-400) K/uL MPV (7.4-10.4) fL Immature Gran % (Auto) % Neut % (Auto) % Lymph % (Auto) % [place] % (Auto) % Eos % (Auto) % Baso % (Auto) % Immature Gran # (Auto) (0.00-0.02) K/uL Neut # (Auto) (1.4-6.5) K/uL Lymph # (Auto) (1.2-3.4) K/uL [place] # (Auto) (0.11-0.59) K/uL Eos # (Auto) (0-0.5) K/uL Baso # (Auto) (0-0.2) K/uL PT (9.0-12.0) Seconds INR (0.9-1.1) APTT (21.0-31.0) Seconds PTT Ratio Sodium (136-145) mmol/L Potassium (3.5-5.1) mmol/L Chloride (98-107) mmol/L Carbon Dioxide (21-32) mmol/L Anion Gap (3-11) BUN (7-18) mg/dl Creatinine (0.6-1.2) mg/dl Est Cr Clr Drug Dosing ml/min Est GFR ( Amer) Est GFR (Non-Af Amer) BUN/Creatinine Ratio (10-20) Glucose (70-99) mg/dl POC Glucose 185 H (70-99) mg/dl Estimat Average Glucose mg/dl Hemoglobin A1c (4.5-5.6) % Calcium (8.5-10.1) mg/dl Magnesium (1.8-2.4) mg/dl Total Bilirubin (0.2-1) mg/dl AST (15-37) U/L ALT (12-78) U/L Alkaline Phosphatase (45-117) U/L Troponin I (0-0.045) ng/ml NT-Pro-B Natriuret Pep (0-900) pg/ml Total Protein (6.4-8.2) gm/dl Albumin (3.4-5.0) gm/dl Globulin (2.5-4.0) gm/dl Albumin/Globulin Ratio (0.9-2) TSH (0.300-4.500) uIu/ml Hepatitis C Ab Screen (Neg) Influenza Type A (PCR) (Neg) Influenza Type B (PCR) (Neg) Imaging Data Radiologist's Impression: Radiology results as stated below per my review and th e radiologist's interpretation: XR chest 1V portable HISTORY: 64 years-old Female Dyspnea acute shortness of breath COMPARISON: Chest CT 07/24/2017, chest radiograph 08/03/2015 TECHNIQUE: Portable AP view of the chest FINDINGS: Cardiomediastinal and hilar silhouettes are within normal limits. No pneumothorax, pleural effusion, focal airspace consolidation or overt pulmonary edema. Bones of the chest are grossly intact. IMPRESSION: No acute process. ACT 112: Negative or not required by law. The above report was generated using voice recognition software. It may contain grammatical, syntax or spelling errors. Electronically signed by: Angel Luis Feliz M.D. 01/22/2020 12:38 PM CHEST CTA for PULMONARY ARTERIES CT DOSE: 588.61 mGy.cm HISTORY: Chest tightness. Difficulty breathing. TECHNIQUE: Multiaxial CT images of the chest were performed following the intravenous administration of contrast to evaluate the pulmonary arteries. Maximal intensity projection images were also obtained. A dose lowering technique was utilized adhering to the principles of ALARA. COMPARISON STUDY: Lung screening CT 03/02/2019. FINDINGS: Normal caliber thoracic aorta with no evidence for dissection. No pleural or pericardial effusions. No filling defects within the pulmonary arteries to suggest pulmonary embolus. No mediastinal or hilar lymphadenopathy. Normal esophagus. Limited views of the upper abdomen demonstrate a normal liver and spleen. Degenerative changes within the right sternoclavicular joint. No pneumothorax. Mild central bronchial wall thickening. A few scattered subcentimeter pulmonary nodules remain unchanged. There is new 7 mm nodular density within the right lower lobe on image 78. This favors a small focus of atelectasis or infectious change. IMPRESSION: 1. No evidence for pulmonary embolus. 2. Multiple scattered subcentimeter pulmonary nodules remain unchanged. There is a new 7 mm nodular density within the right lower lobe. This favors a small focus of atelectasis or inflammatory change. Follow-up chest CT in 6 months can be performed to ensure resolution. 3. Mild central bronchial wall thickening. This could be due to a bronchitis or reactive airways disease. ACT 112: Negative or not required by law. Electronically signed by: Juaquin Burgess M.D. 01/22/2020 3:37 PM ECG Data Attestation: I personally reviewed and interpreted this ECG as follows: Indication: + SOB/dyspnea Rate (beats per minute): 82 Rhythm: + normal sinus ECG ST segments: no ST depression and no ST elevation ECG Findings: no PACs and no PVCs Comparison ECG Date: from (08/03/15) Change: no significant change Blood Pressure Blood Pressure Findings: Elevated blood pressure Blood Pressure Disposition: further management by hospitalist DEVON Narrative The patient is a 64-year-old female who presented to the emergency department for an evaluation of cough and difficulty breathing. The patient's history and physical exam appear to be consistent with bronchospasm. Given her history of tobacco use this is likely bronchitis versus COPD. The patient was treated with bronchodilator therapy as well as IV steroids in the emergency department. The patient was reevaluated multiple times. She continues to have significant bronchospasm. She was also hypoxic on room air. The patient had significant exertional symptoms as well. For this reason I discussed her case with the on- call [facility] hospitalist group. They have agreed to evaluate the patient in the emergency department for further management and disposition. I did recommend a CT of the chest given the patient's hypoxia. Impression & Plan Bronchitis, Hypoxia, Tobacco use, Chest pain, Hyperglycemia Discharge Plan Visit Data *Final* Discharge Date/Time: 01/22/20 16:20 Chief Complaint: Shortness of Breath/Dyspnea Stated Complaint: sob/flu symptoms ED Provider: Shekhar Salmeron Discharge Problem: Bronchitis, Hypoxia, Tobacco use, Chest pain, Hyperglycemia Patient Disposition: Admitted As Inpatient Discharge Instructions Interventions: ED Discharge Assessment Last Done: 01/22/20 16:20 Discharge Problem: Chest pain Qualifiers: Chest pain type: unspecified Qualified Code(s): R07.9 - Chest pain, unspecified The scribe's documentation has been prepared under my direction and personally reviewed by me in its entirety. I confirm that the note above accurately reflects all work, treatment, procedures, and medical decision making performed by me.
--- NOTE | 2020-01-22 12:39 | XRay Report ---
XR chest 1V portable HISTORY: 64 years-old Female Dyspnea acute shortness of breath COMPARISON: Chest CT 07/24/2017, chest radiograph 08/03/2015 TECHNIQUE: Portable AP view of the chest FINDINGS: Cardiomediastinal and hilar silhouettes are within normal limits. No pneumothorax, pleural effusion, focal airspace consolidation or overt pulmonary edema. Bones of the chest are grossly intact. IMPRESSION: No acute process. ACT 112: Negative or not required by law. The above report was generated using voice recognition software. It may contain grammatical, syntax o r spelling errors. Electronically signed by: Angel Luis Feliz M.D. 01/22/2020 12:38 PM
[2020-01-22 13:19] LABS: Influenza A virus by PCR Neg for Influ A (Neg); Influenza B virus by PCR Neg for Influ B (Neg)
[2020-01-22] MEDS ORDERED: methylPREDNISolone 125 MG/2 ML VIAL IV STA (13:54)
[2020-01-22] MEDS ORDERED: ALBUT/IPRATROP 3MG/0.5MG NEB 3 ML VIAL NEB STA (13:54)
[2020-01-22] MEDS ORDERED: NovoLIN-R INSULIN PER UNIT CHARGE IV STA (14:08)
[2020-01-22] MEDS ORDERED: OPTIRAY 320 125ml IV PRN (15:08)
--- NOTE | 2020-01-22 15:32 | History & Physical Report ---
Date of Service January 22, 2020 Assessment & Plan (1) Acute respiratory failure: Admit to [facility] on telemetry, Vital signs every 4 hours, Duo nebs every 4 hours scheduled as PRN per RT, Robitussin 10 mg p.o. every 6 hours as needed, Solu-Medrol 40 mg IV twice daily, Started doxycycline 100 mg IV twice daily and ceftriaxone 2 g IV daily for possible pneumonia v COPD exacerbation, Sputum cultures pending, DVT prophylaxis: Lovenox 40 mg subcu 2 daily, Full code (2) Bronchitis: As the above Present on Admission?: Yes (3) Tobacco use: Patient states that she is trying to quit smoking, She was advised to quit smoking as soon as possible, She accepted nicotine patch Present on Admission?: Yes (4) COPD exacerbation: Treatment as discussed above Present on Admission?: Yes (5) Sinus drainage: Continue treatment as discussed above, Continue Flonase nasal 2 sprays nightly, Start loratadine 10 mg p.o. nightly Saline spray every 4 hours as needed for congestion Present on Admission?: Yes (6) Depression: Stable, continue home dose of gabapentin 300 mg p.o. nightly, citalopram 40 mg p.o. every morning. Present on Admission?: Yes (7) Diabetes mellitus type 2, uncontrolled, without complications: Diabetic control per pharmacy, Accu-Cheks before meals and at bedtime, continue insulin glargine 22 units subcu with nightly and sliding scale insulin. Hold metformin while patient is in the hospital and possibly exposed to radiological studies with contrast which may affect her kidneys. Continue multivitamins minerals/limiting, Hemoglobin A1c pending Present on Admission?: Yes (8) Hyperlipidemia: Fasting lipid panel pending. Patient is not on any statins and reports allergy on it. If lipid panel elevated will start a different agent. Present on Admission?: Yes (9) Hypertension: Stable, continue home medicine propranolol 20 mg p.o. twice daily, aspirin 81 mg p.o. daily. Present on Admission?: Yes History of Present Illness Chief Complaint: Cough and shortness of breath Primary Care Provider: Rafael Lui MD The patient is a 64 years old female with past medical history of hypertension, multiple pulmonary nodules, obesity, smoking half a pack per day for 40 years, hyperlipidemia, diabetes mellitus type 2 uncontrolled without complications who presents to the emergency room with a complaint of shortness of breath for 3 days, cough and sinusitis. Patient reports living by herself and no sick contact. Patient denies fever, chills, chest pain, abdominal pain, frequency, urgency, syncope or near syncope. Patient denies ever using oxygen at home. Patient is so short of breath that she needed to be placed on 2 L of oxygen at rest to be above 92%. Labs are reviewed WBC is 4.48, hemoglobin 13.8, hematocrit 41.4, platelets 204, PT 10.5, INR 1, APTT 27.3, sodium 137, potassium 3.9, chloride 103, carbon dioxide 28, anion gap 5, BUN 9, creatinine 0.8, GFR 79, glucose 228,Hemoglobin A1c pending, calcium 9.8, magnesium 2, total bilirubin 0.4, AST 14, ALT 19, alkaline phosphatase 89, troponin 0.015, BNP 69, total protein 7.8, Albumin 3.8, globulin 4, procalcitonin 0.05, TSH 1.04. Influenza A and B negative. CT angiogram of the chest: No evidence of pulmonary embolus. Multiple scattered subcentimeter pulmonary nodules remain unchanged. There is a new 7 mm nodule density within the right lower lobe. This favors a small focus of atelectasis or inflammatory change. Follow-up chest CT in 6 months can be performed to ensure resolution. Mild central bronchial wall thickness. This could be due to a bronchitis or reactive airway disease. Patient was made to admit patient to [facility] on telemetry for COPD exacerbation and to rule out possible pneumonia. Allergies Allergy/AdvReac Type Severity Reaction Status Date / Time atorvastatin Allergy MYALGIA Verified 01/22/20 12:01 rosuvastatin [From Crestor] Allergy Verified 01/22/20 12:01 simvastatin Allergy Verified 01/22/20 12:01 primidone AdvReac DEPRESSION; Verified 01/22/20 12:01 SUICIDAL THOUGHTS PRIMADONE Allergy Unknown DEPRESSION, Uncoded 01/22/20 12:01 SUICIDAL IDEATION Home Medications Home Medications Medication Instructions Recorded Confirmed Type citalopram 40 mg tablet 40 mg PO QAM #30 tab 07/04/19 01/22/20 History metformin 1,000 mg tablet 1,000 mg PO BID #180 tab 07/04/19 01/22/20 History [id number]-vvzksemh-[id number] 1 tab PO HS 07/04/19 01/22/20 History triamcinolone acetonide 0.5 % 1 appln TOPICAL DAILY PRN #3 gm 07/04/19 01/22/20 History topical cream insulin aspart U-100 100 unit/mL 0 units SQ TIDM ml 08/08/19 01/22/20 History (3 mL) subcutaneous pen propranolol 20 mg tablet 20 mg PO BID 08/10/19 01/22/20 History BD Ultra-Fine Amanda Pen Needle 32 #400 ea NS 12/08/19 01/05/20 Rx gauge x 5/32" OneTouch Ultra Blue Test Strip #400 ea NS 12/08/19 01/05/20 Rx fluticasone propionate 50 2 sprays INTRANASAL HS #3 gm 12/08/19 01/22/20 History mcg/actuation nasal spray,suspension nystatin 100,000 unit/gram topical 1 appln TOPICAL TID PRN #3 gm 12/08/19 01/22/20 History powder blood-glucose meter #1 ea 01/05/20 01/05/20 History gabapentin 300 mg capsule 300 mg PO HS #90 cap 01/12/20 01/22/20 Rx aspirin 81 mg PO QAM 01/22/20 01/22/20 History ibuprofen 200 mg PO Q6H PRN 01/22/20 01/22/20 History insulin glargine U-300 conc 22 units SQ HS 01/22/20 01/22/20 History [Toujeo Max U-300 SoloStar] pseudoephedrine HCl [Sudafed] 30 mg PO Q6H PRN 01/22/20 01/22/20 History Past Med/Surg History Medical History Bipolar disorder, unspecified (Acute) Depression (Acute) Diabetes mellitus type 2, uncontrolled, without complications (Acute) Herniated cervical disc (Acute) Hyperlipidemia (Acute) Hypertension (Acute) Insomnia (Acute) Lichen sclerosus et atrophicus (Acute) Multiple pulmonary nodules (Acute) Numbness (Acute) Obesity (Acute) Shoulder pain (Acute) Smokes 1/2 pack per day (Acute) Thyroid nodule (Acute) Tremor (Acute) Tricuspid regurgitation (Acute) Vasovagal syncope (Acute) Surgical History H/O oophorectomy (Acute) Family History Mother Breast cancer Denies family history of Ovarian cancer Prostate cancer Myocardial infarction Colorectal cancer Social History Preferred Language: Slovenian Communication Ability: Effective Shipfitter Required: No Beliefs That Will Affect Care: None Current Living Situation: Alone Other Information That Helps Us Care for You: No Feels Safe at Home: Yes Safety Concerns: Feels Safe At This Time Smoking Status: Current every day smoker Tobacco Type: cigarettes ; Cigarettes Per Day: 10 ; Do You Dip or Chew Tobacco: No ; Hx Alcohol Use: No Hx Substance Use: No Review of Systems Review of Systems: All systems reviewed & are unremarkable except as noted in HPI & below Physical Exam Constitutional: WD/WN, vitals as above well developed, + ill appearing, + well hydrated and + morbidly obese Eyes: PERRL, conjunctivae normal, anicteric sclerae ENMT: external ear and nose normal, oropharynx normal Neck: trachea midline, no thyromegaly Respiratory: + respiratory distress, + labored breathing, + uses accessory muscles, + cough and + tachypneic Auscultation: + crackles and + wheezes Cardiovascular: Heart Sounds: normal S1 and normal S2 Vessels: dorsalis pedis pulses present Extremities: no pedal edema Gastrointestinal (Abdomen): normal bowel sounds, soft, nontender, no hepatosplenomegaly Musculoskeletal: no cyanosis or clubbing, extremities motor strength 5/5 Skin: no rashes, warm and dry Neurologic: patellar DTR's 2+ bilat, sensation intact Psychiatric: A+Ox3, euthymic affect Lymphatic: no cervical or axillary lymphadenopathy Results & Data Vital Signs (Past 12 Hours) Vital Signs Temp Pulse Pulse Resp BP Pulse Ox 01/22/20 14:30 87 17 147/93 H 94 01/22/20 14:17 71 16 98 01/22/20 14:00 68 19 143/87 H 95 01/22/20 13:30 78 13 164/87 H 92 01/22/20 13:00 86 23 165/85 H 94 01/22/20 12:30 85 16 152/97 H 98 01/22/20 12:11 71 16 97 03/01/20 12:09 98 01/22/20 12:00 96 H 17 163/102 H 97 01/22/20 11:37 36.9 C 88 26 H 157/113 H 90 01/22/20 11:35 91 H 22 159/86 H 98 Code Status & VTE Plan Code Status Full code VTE Prophylaxis Plan VTE Prophylaxis will be ordered: Yes PG Care Time/CCT Total # of Minutes Spent Total Time Spent with Patient: Total time spent is greater than 50% in co ordination of care (as documented) at patient's floor/unit and/or counseling patient: Coding Level of Care Code 90979 Initial Inpt Care Lvl 3 Diagnoses Acute respiratory failure J96.00 Bronchitis J40 Tobacco use Z72.0 COPD exacerbation J44.1 Sinus drainage J34.89 Depression F32.9 Diabetes mellitus type 2, uncontrolled, without complications E11.65 Hyperlipidemia E78.5 Hypertension I10
--- NOTE | 2020-01-22 15:39 | CT Scan Report ---
CHEST CTA for PULMONARY ARTERIES CT DOSE: 588.61 mGy.cm HISTORY: Chest tightness. Difficulty breathing. TECHNIQUE: Multiaxial CT images of the chest were performed following the intravenous administration of contrast to evaluate the pulmonary arteries. Maximal intensity projection images were also obtaine d. A dose lowering technique was utilized adhering to the principles of ALARA. COMPARISON STUDY: Lung screening CT 03/02/2019. FINDINGS: Normal caliber thoracic aorta with no evidence for dissection. No pleural or pericardial ef fusions. No filling defects within the pulmonary arteries to suggest pulmonary embolus. No mediastina l or hilar lymphadenopathy. Normal esophagus. Limited views of the upper abdomen demonstrate a normal liver and spleen. Degenerative changes within the right sternoclavicular joint. No pneumothorax. Mil d central bronchial wall thickening. A few scattered subcentimeter pulmonary nodules remain unchanged . There is new 7 mm nodular density within the right lower lobe on image 78. This favors a small focu s of atelectasis or infectious change. IMPRESSION: 1. No evidence for pulmonary embolus. 2. Multiple scattered subcentimeter pulmonary nodules remain unchanged. There is a new 7 mm nodular d ensity within the right lower lobe. This favors a small focus of atelectasis or inflammatory change. Follow-up chest CT in 6 months can be performed to ensure resolution. 3. Mild central bronchial wall thickening. This could be due to a bronchitis or reactive airways dise ase. ACT 112: Negative or not required by law. Electronically signed by: Juaquin Burgess M.D. 01/22/2020 3:37 PM
[2020-01-22] MEDS ORDERED: GUAIFENESIN/CODEINE 200MG/20MG 10ML UDC PO PRN (16:47)
[2020-01-22] MEDS ORDERED: ONDANSETRON INJ 2 MG/ML 2 ML VIAL IV PRN (16:47)
[2020-01-22] MEDS ORDERED: MAGNESIUM HYDROXIDE SUSP 30 ML UDC PO PRN (16:47)
[2020-01-22] MEDS ORDERED: ACETAMINOPHEN 325 MG TAB PO PRN (16:47)
[2020-01-22] MEDS ORDERED: TRIAMCINOLONE ACET 0.5% CR 15 GM TUBE TOP PRN (16:47)
[2020-01-22] MEDS ORDERED: ALUMINUM/MAGNESIUM SUSP 30 ML UDC PO PRN (16:47)
[2020-01-22] MEDS ORDERED: POLYETHYLENE (MIRALAX) 17 GM PACK PO PRN (16:47)
[2020-01-22] MEDS ORDERED: NYSTATIN POWDER 15GM BTL EXT PRN (16:47)
[2020-01-22] MEDS ORDERED: CARBOHYDRATES FOR HYPOGLYCEMIA PO PRN (17:05)
[2020-01-22] MEDS ORDERED: GLUCAGON FOR INJ 1 MG VIAL SQ PRN (17:05)
[2020-01-22] MEDS ORDERED: DEXTROSE 50% 50 ML SYRINGE IV PRN (17:05)
[2020-01-22] MEDS ORDERED: GLUCOSE 40% GEL 15 GM TUBE PO PRN (17:05)
[2020-01-22] MEDS ORDERED: GLUCOSE 10 TABS/TUBE PO PRN (17:05)
[2020-01-22] MEDS ORDERED: PHARMACY GLYCEMIC MGMT CONSULT PRN (17:11)
[2020-01-22 17:28] LABS: NT Pro B Type Natriuretic Pept 69 pg/ml (0-900)
[2020-01-22] MEDS: INSULIN ASPART 100 UNITS/ML 3 ML PEN SC SCH ×4 (17:33→23:45)
[2020-01-22] MEDS: NICOTINE 14 MG/24 HR PATCH TD SCH (17:37)
[2020-01-22] MEDS ORDERED: cefTRIAXone SODIUM 2,000 MG in DEXTROSE 5% 50 ML IV SCH (18:00)
[2020-01-22] MEDS: ALBUT/IPRATROP 3MG/0.5MG NEB 3 ML VIAL NEB SCH (18:13)
[2020-01-22] MEDS ORDERED: SODIUM CHLORIDE 0.65% NA SOLN 45 ML (OCEAN) PRN (20:44)
[2020-01-22] MEDS ORDERED: LORATADINE 10 MG TAB PO SCH (21:00)
[2020-01-22] MEDS ORDERED: GABAPENTIN 300 MG CAP PO SCH (21:00)
[2020-01-22] MEDS ORDERED: CEROVITE ADV FORMULA TAB PO SCH (21:00)
[2020-01-22] MEDS ORDERED: INSULIN GLARGINE SOLOSTAR 100 UNITS/ML 3 ML PEN SC ONE (21:00)
[2020-01-22] MEDS ORDERED: INSULIN GLARGINE SQ SCH (21:00)
[2020-01-22] MEDS ORDERED: FLUTICASONE/VILANTEROL 100/25MCG 14 PUFFS/INHALER INH SCH (21:00)
[2020-01-22] MEDS ORDERED: FLUTICASONE PROPIONATE NA SPR 16 GM BTL NAE SCH (21:00)
[2020-01-22] MEDS: methylPREDNISolone 40 MG in SYRINGE 0 ML IV SCH (21:08)
[2020-01-22] MEDS: PROPRANOLOL HCL 20 MG TAB PO SCH (21:08)
[2020-01-22] MEDS: ENOXAPARIN INJ 40 MG/0.4 ML SYR SQ SCH ×2 (21:09→21:56)
[2020-01-22] MEDS: DOXYCYCLINE HYCLATE 100 MG in DEXTROSE 5% 100 ML IV SCH (21:28)
[2020-01-23] MEDS ORDERED: TRAZODONE HCL 100 MG TAB PO PRN (00:04)
[2020-01-23] MEDS ORDERED: INSULIN ASPART 100 UNITS/ML 3 ML PEN SC ONE (02:00)
[2020-01-23] MEDS: INSULIN ASPART 100 UNITS/ML 3 ML PEN SC SCH ×3 (03:53→12:21)
[2020-01-23 06:06] LABS: Basophils # (auto) 0.01 K/uL (0-0.2); Basophils % (auto) 0.2 %; Hematocrit (blood only) 39.6 % (37-47); Hemoglobin 13.1 g/dL (12.0-16.0); Immature Granulocytes # (auto) 0.01 K/uL (0.00-0.02); Immature Granulocytes % (auto) 0.2 %; Lymphocytes # (auto) 0.64 K/uL (1.2-3.4); Lymphocytes % (auto) 11.1 %; Mean Corpuscular Hemoglobin 29.4 pg (25-34); Mean Corpuscular Hgb Conc 33.1 g/dL (32-36); Mean Corpuscular Volume 88.8 fL (80-100); Mean Platelet Volume 10.2 fL (7.4-10.4); Monocytes # (auto) 0.54 K/uL (0.11-0.59); Monocytes % (auto) 9.4 %; Neutrophils # (auto) 4.54 K/uL (1.4-6.5); Neutrophils % (auto) 79.1 %; Platelet Count 211 K/uL (130-400); RDW Coefficient of Variation 12.1 % (11.5-14.5); Red Blood Count 4.46 M/uL (4.2-5.4); White Blood Count 5.74 K/uL (4.8-10.8)
[2020-01-23 06:08] LABS: Estimated Average Glucose 200 mg/dl; Hemoglobin A1C 8.6 % (4.5-5.6)
[2020-01-23 06:40] LABS: Albumin Level 3.6 gm/dl (3.4-5.0); BUN Creatinine Ratio 16.5 (10-20); Calcium 9.8 mg/dl (8.5-10.1); Creatinine Clr Calc Pharmacy 97.4 ml/min; Est GFR (African American) 95.9; Est GFR (Non-African American) 82.8
[2020-01-23 06:42] LABS: Bilirubin,Total 0.3 mg/dl (0.2-1); Globulin 3.7 gm/dl (2.5-4.0); Total Protein 7.3 gm/dl (6.4-8.2)
[2020-01-23] MEDS: ALBUT/IPRATROP 3MG/0.5MG NEB 3 ML VIAL NEB SCH ×2 (07:14→11:24)
[2020-01-23] MEDS: methylPREDNISolone 40 MG in SYRINGE 0 ML IV SCH (08:07)
[2020-01-23] MEDS: PROPRANOLOL HCL 20 MG TAB PO SCH (08:08)
[2020-01-23] MEDS: NICOTINE 14 MG/24 HR PATCH TD SCH (08:13)
[2020-01-23] MEDS: DOXYCYCLINE HYCLATE 100 MG in DEXTROSE 5% 100 ML IV SCH (08:17)
[2020-01-23] MEDS ORDERED: INSULIN HUMAN NPH SC SCH (08:30)
[2020-01-23] MEDS ORDERED: ASPIRIN 81 MG ECTAB PO SCH (09:00)
[2020-01-23] MEDS ORDERED: CITALOPRAM 40 MG TAB PO SCH (09:00)
--- NOTE | 2020-01-23 10:31 | Electrocardiogram Report ---
Test Reason : Blood Pressure : / mmHG Vent. Rate : 082 BPM Atrial Rate : 082 BPM P-R Int : 176 ms QRS Dur : 092 ms QT Int : 392 ms P-R-T Axes : 051 007 053 degrees QTc Int : 457 ms Poor data quality, interpretation may be adversely affected Normal sinus rhythm Normal ECG When compared with ECG of 03-AUG-2015 19:08, No significant change was found Confirmed by Shekhar Strong ([id number]) on 01/23/2020 10:30:56 AM Referred By: REFERRED SELF Confirmed By:Shekhar Strong
--- NOTE | 2020-01-23 12:39 | Pharmacy Report ---
Glycemic Control Consultation - Date of Service January 23, 2020 - Scope Scope: Glycemic Pharmacist consulted for glycemic control and to write orders per [facility] inpatient glycemic control protocol. - Objective Weight: 107.8 kg Accuchecks BSG (last 24hrs): 01/22/20 01/22/20 01/22/20 14:52 16:44 20:37 Glucose POC Glucose 185 H 228 H 316 H* 01/22/20 01/22/20 01/23/20 20:38 23:28 03:49 Glucose POC Glucose 336 H* 278 H 242 H 01/23/20 01/23/20 01/23/20 05:22 07:19 11:28 Glucose 207 H POC Glucose 200 H 226 H Laboratory Data (last 24hrs): 01/23/20 05:22 Potassium 4.0 Carbon Dioxide 30 Anion Gap 3.0 Creatinine 0.77 Est Cr Clr Drug Dosing 97.4 HbA1c: Hemoglobin A1c 8.6 % (4.5-5.6) H 01/22/20 10:55 - Recent Pertinent Medications Outpatient Anti-diabetic Regimen: * Toujeo 22u HS, Novolog TIDM, Metformin * A1c = 8.6 % 01/22/2020 - Assessment & Plan Assessment & Plan: ASSESSMENT: * Pt is a 64yo F type II diabetic. Pw ARF, she is being treated with NAKUL/BACILIO + solumedrol 40mg IV q12. PMHx consistent with HTN, obesity, COPD, HLD, among others. Reviewed her chart and I am unable to find recent PFTs. * BSGs since admission have been elevated, likely steroid induced. She is ordered a diet. She is receiving IV antibx. A1C of 8.6%, based on co morbidities her goal A1C is likely < 8.0 % PLAN FOR INPATIENT GLYCEMIC CONTROL: * Holding outpatient oral diabetes medications * Basal insulin: lantus plus NPH * Lantus scale at HS, see MAR for further details. We will stress her home Rx if she is >/=180mg/dL @ hs * NPH 20u QAM to help alleviate hyperglycemia during the day * Bolus insulin * NovoLog per scale ACHS or Q6hrs while NPO * Goal Range: Low 110 mg/dL - High 140 mg/dL * Correction Factor: 15 mg/dL/unit * Nutritional / Prandial insulin per carb ratio of 1 unit per 5 grams CHO consumed * Please note that the plan above was derived based on current level of insulin resistance and hospital stress. These recommendations are appropriate for inpatient admission only. Plan of care upon discharge will need to be reassessed to avoid potential outpatient hypo/hyperglycemia. Thank you.
--- NOTE | 2020-01-23 16:45 | Discharge Summary ---
Date of Service January 23, 2020 Admission HPI Per Admitting Provider The patient is a 64 years old female with past medical history of hypertension, multiple pulmonary nodules, obesity, smoking half a pack per day for 40 years, hyperlipidemia, diabetes mellitus type 2 uncontrolled without complications who presents to the emergency room with a complaint of shortness of breath for 3 days, cough and sinusitis. Patient reports living by herself and no sick contact. Patient denies fever, chills, chest pain, abdominal pain, frequency, urgency, syncope or near syncope. Patient denies ever using oxygen at home. Patient is so short of breath that she needed to be placed on 2 L of oxygen at rest to be above 92%. Labs are reviewed WBC is 4.48, hemoglobin 13.8, hematocrit 41.4, platelets 204, PT 10.5, INR 1, APTT 27.3, sodium 137, potassium 3.9, chloride 103, carbon dioxide 28, anion gap 5, BUN 9, creatinine 0.8, GFR 79, glucose 228,Hemoglobin A1c pending, calcium 9.8, magnesium 2, total bilirubin 0.4, AST 14, ALT 19, alkaline phosphatase 89, troponin 0.015, BNP 69, total protein 7.8, Albumin 3.8, globulin 4, procalcitonin 0.05, TSH 1.04. Influenza A and B negative. CT angiogram of the chest: No evidence of pulmonary embolus. Multiple scattered subcentimeter pulmonary nodules remain unchanged. There is a new 7 mm nodule density within the right lower lobe. This favors a small focus of atelectasis or inflammatory change. Follow-up chest CT in 6 months can be performed to ensure resolution. Mild central bronchial wall thickness. This could be due to a bronchitis or reactive airway disease. Patient was made to admit patient to [facility] on telemetry for COPD exacerbation and to rule out possible pneumonia. Principal Diagnosis Bronchitis vs. asthma vs. COPD exacerbation Discharge Exam Constitutional WD/WN, vitals as above well developed, + well hydrated and + morbidly obese Eyes PERRL, conjunctivae normal, anicteric sclerae ENMT external ear and nose normal, oropharynx normal Neck trachea midline, no thyromegaly Respiratory + labored breathing and + cough Auscultation: + crackles and + wheezes Cardiovascular Heart Sounds: normal S1 and normal S2 Vessels: dorsalis pedis pulses present Extremities: no pedal edema Gastrointestinal (Abdomen) normal bowel sounds, soft, nontender, no hepatosplenomegaly Musculoskeletal no cyanosis or clubbing, extremities motor strength 5/5 Skin no rashes, warm and dry Neurologic patellar DTR's 2+ bilat, sensation intact Psychiatric A+Ox3, euthymic affect Lymphatic no cervical or axillary lymphadenopathy Discharge Data Allergies Allergy/AdvReac Type Severity Reaction Status Date / Time atorvastatin Allergy MYALGIA Verified 01/22/20 12:01 rosuvastatin [From Crestor] Allergy Verified 01/22/20 12:01 simvastatin Allergy Verified 01/22/20 12:01 primidone AdvReac DEPRESSION; Verified 01/22/20 12:01 SUICIDAL THOUGHTS PRIMADONE Allergy Unknown DEPRESSION, Uncoded 01/22/20 12:01 SUICIDAL IDEATION Consultations 01/22/20 14:05 ED Decision to Admit Stat 01/23/20 11:49 [facility] COPD/Pnx Program Referral Routine Ordered Studies 01/22/20 14:05 CT angio chest PE protocol Stat Hospital Course (1) Bronchitis: CT chest showed some airway thickening: Possibly bronchitis vs. reactive airway disease. Given her smoking history, COPD is a concern, though she has never had a formal diagnosis. - [place] better within 1 day and wanted to go home. - Discharged on 5-day course of abx and steroids. Combivent was called in as well. Only $3 on her insurance plan. At this stage, not sure she needs any long- term inhaler. Put in COPD referral to try to expedite PFTs. - Note: Patient was borderline hypoxemic on discharge. Was ~90% on room air and temporarily dipped with exertion with quick return to ~90% on rest. The patient did not want O2 given the extra time/cost/inconvenience of O2. I think this is fine given the fact that benefit in hypoxemia is questionable at 90%. She may also rebound once breathing improves. Will follow up with PCP and COPD clinic. She was open to its need if her O2 levels get lower. (2) Tobacco use: Patient states that she is trying to quit smoking. Sent nicotine patches in to her pharmacy. - Encourage cessation. (3) COPD exacerbation: Possible, though no formal diagnosis. - Treatment as discussed above (4) Diabetes mellitus type 2, uncontrolled, without complications: Held metformin while patient is in the hospital. - Will need to watch her blood sugars on discharge due to the steroids. This was discussed with the patient. (5) Sinus drainage: Off and on sinus pressure that has resolved without prior abx. Given 5-day course of doxycycline for bronchitis which may help. - Follow up with PCP this week. (6) Hypertension: Stable while inpatient. - Continue home medicine propranolol 20 mg p.o. twice daily, aspirin 81 mg p.o. daily. (7) Depression: Stable. - Continued home dose of gabapentin 300 mg p.o. nightly, citalopram 40 mg p.o. every morning. Total Time Total Time Spent Total Time Spent (In Minutes): 35 Discharge Plan Discharge Items Patient Disposition: Home - Self-Care Reason For Visit: SOB Discharge Diagnosis: Cough, shortness of breath. Possible COPD exacerbation vs. asthma. Activity: Resume your previous activity Non-emergency contact: Primary Care Provider and Software Quality Assurance Analyst Call non-emergency contact if: your symptoms worsen and your temperature is above 101 Follow-up/Referrals: Jose Lui MD [Primary Care Provider] - 01/25/20 11:00 am (You have an appt scheduled with Monika Jonnathan on ThursdayJanuary 24 at 1100am. Please arrive 15 minutes prior to your appt time. If this appt does not fit your schedule please call [phone] to reschedule. ) Diet: Carb Consistent or DM2 Addtl Attending Provider Instructions: You were admitted to the hospital with cough and shortness of breath. We did a CT scan that indicated bronchitis or a reactive airway (something like asthma). Given the long smoking history, we are concerned about something called COPD. This is really only diagnosed with a breathing study, and it is usually done when you are feeling well. We have put out a referral to our lung team to touch base with you in the next few days to be sure you get the follow up you need. In the meantime, please use the medications we are sending to the pharmacy to be sure you continue to feel well. Your breathing had improved tremendously by the time you were discharged, so we feel you will get better quickly. Please take your next dose of steroid & antibiotic tomorrow morning. With the steroids, your blood sugars can get high. Please check 3-4 times per day for the next few days while you're on the steroids. Please see Dr. Lui or Ms. Dunn in the clinic this week to be sure you're doing better. Pending Studies at Discharge: No Stand-Alone Forms: [facility], Smoking Cessation Medications and DC Order Prescriptions: New nicotine 7 mg/24 hr Patch 24 Hour 14 mg transdermal QAM Qty: 14 RF: 0 prednisone 20 mg tablet 40 mg PO DAILY Qty: 8 RF: 0 doxycycline hyclate 100 mg tablet 100 mg PO BID Qty: 8 RF: 0 Combivent Respimat 20-100 mcg/actuation mist 2 puffs INH Q6H PRN (Reason: shortness of breath or wheezing) Qty: 4 RF: 0 Continued gabapentin 300 mg capsule 300 mg PO HS Qty: 90 RF: 2 citalopram 40 mg tablet 40 mg PO QAM Qty: 30 RF: 0 metformin 1,000 mg tablet 1,000 mg PO BID Qty: 180 RF: 0 mvxxnzvpblzr-tfooulbd-ijuzqi tablet 1 tab PO HS RF: 0 triamcinolone acetonide 0.5 % cream 1 appln topical DAILY PRN (Reason: Rash) Qty: 3 RF: 0 Novolog Flexpen U-100 Insulin 100 unit/mL (3 mL) insulin pen 0 units SQ TIDM RF: 0 fluticasone propionate 50 mcg/actuation spray,suspension 2 sprays intranasal HS Qty: 3 RF: 0 nystatin 100,000 unit/gram powder 1 appln topical TID PRN (Reason: .) Qty: 3 RF: 0 (DME) pen needle, diabetic [BD Ultra-Fine Amanda Pen Needle] 32 gauge x 5/32" needle See Dose Instructions .ROUTE .MEDSUPPLY Qty: 400 RF: 3 (DME) OneTouch Ultra Blue Test Strip Strip See Rx Instructions .ROUTE .MEDSUPPLY Qty: 400 RF: 3 (DME) blood-glucose meter [OneTouch Ultra2 Meter] Kit See Dose Instructions .ROUTE .MEDSUPPLY Qty: 1 RF: 0 propranolol 20 mg tablet 20 mg PO BID RF: 0 aspirin 81 mg Tablet,Delayed Release (Dr/Ec) 81 mg PO QAM RF: 0 ibuprofen 200 mg Tablet 200 mg PO Q6H PRN (Reason: Pain) RF: 0 Toujeo Max U-300 SoloStar 300 unit/mL (3 mL) insulin pen 22 units SQ HS RF: 0 pseudoephedrine HCl [Sudafed] 30 mg Tablet 30 mg PO Q6H PRN (Reason: Congestion) RF: 0 Discharge Orders: Discharge Order (Routine); Ordered 01/23/20 Ordered By: Jam Gallegos Admission Data Admit Date/Time: 01/22/20 15:31 Attending Provider: Jam Gallegos Admit Provider: Alexus Rosario Primary Care Provider: Jose Lui Other Providers: Jam Gallegos ; Toshia Hall Other Interventions: Discharge Summary Assessment (RN) Last Done: 01/23/20 12:56 DC Date/Time DO NOT enter until pt leaves facility: 01/23/20 14:25 Coding Level of Care Code 65081 OBS Care - Discharge Diagnoses Bronchitis J40 Tobacco use Z72.0 COPD exacerbation J44.1 Diabetes mellitus type 2, uncontrolled, without complications E11.65 Sinus drainage J34.89 Hypertension I10 Depression F32.9
[2020-01-23] MEDS ORDERED: INSULIN GLARGINE SOLOSTAR 100 UNITS/ML 3 ML PEN SC SCH (21:00)
== END 2020-01-23 14:25 | disposition home or self-care (01) ==
LOC: 2N 11:18 → ED 11:18 → SUATTDRO 15:31 → 2N 16:20